=== PATIENT | female | born 1975 | race Caucasian/White ===

== ENCOUNTER 2020-05-07 09:35 | Outpatient (CLI) | payer OTHER, SELFPAY ==
--- NOTE | ~2020-05-07 | MM_ITS ---
EXAMINATION: MM screening patti BI w dennise HISTORY: Screening mammogram TECHNIQUE: Craniocaudal and mediolateral oblique 3-D tomosynthesis images were obtained and synthetic 2-D images were generated. CAD analysis was submitted and interpreted. COMPARISON: 11/18/2014, 11/12/2014 BREAST PARENCHYMAL COMPOSITION: The breasts are heterogeneously dense, which may obscure small masses . FINDINGS: RIGHT BREAST: Focal asymmetry in the upper outer right breast persists but is decreased in prominence since the comparison examination. There is no evidence of suspicious mass, calcification, or archite ctural distortion to suggest malignancy. There has been no significant interval change. LEFT BREAST: An area of focal asymmetry is present in the posterior third of the lower breast. IMPRESSION: 1. Focal asymmetry of the lower left breast. 2. Additional mammographic views and possible breast ultrasound are recommended. BI-RADS Category 0: Incomplete: Needs additional imaging evaluation. Reviewed, dictated and finalized at location A. IMPRESSION: 1. Focal asymmetry of the lower left breast. 2. Additional mammographic views and possible breast ultrasound are recommended . BI-RADS Category 0: Incomplete: Needs additional imaging evaluation.
== END 2020-05-07 09:36 | disposition home or self-care (01) ==
PROVIDERS: PCP Family Medicine; Visit Provider Family Medicine
DX: Z12.31 Encounter for screening mammogram for malignant neoplasm of breast (principal); R92.8 Other abnormal and inconclusive findings on diagnostic imaging of breast
CPT/HCPCS: 77063; 77067

== ENCOUNTER 2020-06-02 13:20 | Outpatient (CLI) | payer OTHER, SELFPAY ==
--- NOTE | ~2020-06-02 | MMUS_ITS ---
EXAMINATION: MM diagnostic mammo unilat LT, US breast LT limited HISTORY: Focal asymmetry of the left breast on screening mammogram TECHNIQUE: Additional 3-D tomosynthesis images of the left breast were performed and synthetic 2-D im ages were generated. CAD analysis was submitted and interpreted. High resolution limited left breast ultrasound was performed. COMPARISON: 05/07/2020, 10/12/2018, 11/12/2014 FINDINGS: MAMMOGRAPHIC FINDINGS: There appears to be a subtle persistent focal asymmetry in the posterior third of the lower, slightly outer breast approximately 11 cm from the nipple. No associated architectural distortion or suspicio us calcification are identified. ULTRASOUND: There is a questionable 2 cm hyperechoic, parallel mass at the 6:00 location 6 cm from the nipple wit h no posterior features or internal vascularity. IMPRESSION: 1. Probably benign left breast mass. 2. Recommend 6 month follow-up left diagnostic mammogram and ultrasound. BI-RADS category 3, probably benign findings. Reviewed, dictated and finalized at location A. IMPRESSION: 1. Probably benign left breast mass. 2. Recommend 6 month follow-up left diagnostic mammogram and ultrasound. BI-RADS category 3, probably benign findings.
== END 2020-06-02 13:21 | disposition home or self-care (01) ==
PROVIDERS: PCP Family Medicine; Visit Provider Nurse Practitioner Family
DX: N64.89 Other specified disorders of breast (principal); R92.8 Other abnormal and inconclusive findings on diagnostic imaging of breast
CPT/HCPCS: 76642; 77065

== ENCOUNTER 2020-06-19 06:27 | Outpatient (CLI) | payer OTHER, SELFPAY ==
--- NOTE | 2020-07-21 19:41 | WPDHOMESLEEP ---
Sleep Study - Home Unattended Date of Study: 06/29/20 Ordering Provider: Issac Jo MD Interpreting Physician: Jazmin Daigle MD Home Sleep Study Type: Apnea Link Air Height: 1.65 m Weight: 90.718 kg Body Mass Index: 33.3 Neck Circumference (inches): 14 [place]: 5 Reason for Sleep Study daytime fogginess, non restorative sleep Sleep History Trang Velazco is a 45-year-old female who frequently snores, and occasionally it is loud enough that others complain about it. She does not awaken at night with heartburn, belching or coughing nor does she awaken from sleep feeling short of breath. She occasionally has trouble sleeping with a cold. She does not wake up gasping for breath at night, sweating excessively at night, does not notice her heart pounding or beating irregularly at night and does not fall asleep during the day. She does not fall asleep involuntarily or while driving. She does not have loss of muscle tone was strong emotion. She rarely has daytime difficulties due to excessive sleepiness. She does not feel paralyzed on waking or falling asleep. She occasionally has vivid dreamlike scenes upon awakening or falling asleep. She has never a freight to go to sleep and does not have nightmares. She occasionally remembers her dreams. She frequently has racing thoughts. She feels sad, depressed, and anxious, at times. She constantly has muscular tension. She never notices parts of her body jerking. She occasionally kicks at night. Her arms keep her awake at night. She does not have leg pain at night. She occasionally has morning jaw pain. She rarely clenches her teeth at night. She constantly is bothered by pain during the day, rarely is awakened by pain at night. She constantly wakes up feeling stiff in the morning with sore achy muscles and pain in the neck and spine. She has fatigue, concentration difficulties, has bowel disturbances and headaches. Normal bedtime is 12 midnight falling asleep within 10 minutes, typically waking 2 times at night. While she is awake she goes to the bathroom and gets a drink of water. These awakenings last only 5 minutes. She wakes in the morning between 7 and 8:00 a.m.. She estimates 6 hours of sleep at night. She had bladder surgery recently. She really does not have much of a social life. She works 6 days a week from 11:30 a.m. to 8:00 p.m. during the week; on weekends Monday and Monday from 8 am to 4 pm. She is a dispatcher. Habits: Former smoker with 2 pack year history total; caffeine - 6-8 glasses of diet Pepsi or tea daily, no alcohol, PMFSH Past Medical History Medical History Anxiety disorder, unspecified Apnea Cystocele Elevated fasting lipid profile Fibrocystic breast Surgical History Surgical History Hx of breast augmentation Hx of hysterectomy Family History Family History Grandparent Diabetes mellitus Hypertension Mother Diabetes mellitus Family history of migraine headaches Sibling Family history of headache disorder Other Cancer of esophagus Family history of mental disorder Social History Social History Smoking packs per day: 0.5 Smoking cigarettes per day: 10.0 Years smoked: 4 Smoking pack-years: 2.00 Smoking status: Former smoker Smoking end date: 02/04/15 Alcohol intake: never Substance use: never Living arrangements: alone Additional living arrangements comments: LIVES IN ANOTHER STATE, COMING HOME TO CARE FOR HER AFTER Spiritual care concerns: No Medications Home Medications Medication Instructions Recorded Confirmed Type Aleksandr Supplement 2 tab-cap PO HS 06/19/20 06/29/20 History Zyrtec 10 mg PO DAILY 06/19/20 06/29/20 History acetaminophen 1,000 mg PO Q6H PRN 06/19/20
[2020-07-21 21:44] VITALS: BMI 33.3
== END 2020-06-19 06:28 | disposition home or self-care (01) ==
LOC: ANHCSM 06:27
PROVIDERS: PCP Family Medicine; Visit Provider Family Medicine
DX: G47.00 Insomnia, unspecified (principal); G47.33 Obstructive sleep apnea (adult) (pediatric)
CPT/HCPCS: 95806

== ENCOUNTER 2020-06-19 08:59 | Outpatient (CLI) | payer OTHER, SELFPAY ==
[2020-06-19 09:45] LABS: Basophils Percent Auto 0.4 % (0.2-1.2); Eosinophils Absolute Auto 0.2 K/mm3 (0-0.3); Eosinophils Percent Auto 2.1 % (0-4.4); Hematocrit 38.5 % (37.0-47.0); Hemoglobin 13.2 g/dL (12.0-15.0); Immature Granulocyte Absolute 0.03 K/mm3 (0.00-0.031); Immature Granulocyte Percent A 0.4 % (0-0.5); Lymphocytes Absolute Auto 2.38 K/mm3 (0.9-3.2); Lymphocytes Percent Auto 31.2 % (18.3-44.2); Mean Corpuscular HGB Conc 34.3 g/dl (32-36); Mean Corpuscular Hemoglobin 32.4 pg (26-34); Mean Corpuscular Volume 94.4 fl (80-100); Mean Platelet Volume 8.8 fl (7.4-10.4); Monocytes Absolute Auto 0.6 K/mm3 (0.1-0.6); Monocytes Percent Auto 7.3 % (2.6-8.5); Neutrophils Absolute Auto 4.5 K/mm3 (1.3-6.7); Neutrophils Percent Auto 58.6 % (45.5-73.1); Platelet Count Result 248 k/mm3 (150-375); Red Blood Count 4.08 M/mm3 (4.2-5.4); Red Cell Distribution Width 11.9 % (11.5-14.5); White Blood Count 7.6 K/mm3 (4.5-10.0)
[2020-06-19 10:01] LABS: Alanine Aminotransferase 26 U/L (4-35); Albumin Level 4.2 g/dL (3.5-5.1); Alkaline Phosphatase 60 U/L (38-126); Anion Gap 7 mmol/L (8-16); Aspartate Amino Transferase 27 U/L (14-36); Bilirubin,Total 0.2 mg/dL (0.2-1.3); Blood Urea Nitrogen 10 mg/dL (7-17); Calcium 9.7 mg/dL (8.4-10.2); Carbon Dioxide 25 mmol/L (22-30); Chloride 105 mmol/L (98-107); Cholesterol 228 mg/dL (0-200); Estimated Glomerular Filt Rate > 60; Glucose 96 mg/dL (65-105); HDL Direct 63 mg/dL; Potassium 3.9 mmol/L (3.4-5.0); Sodium 137 mmol/L (137-145); Triglycerides 86 mg/dL (<150)
[2020-06-19 10:12] LABS: LDL Cholesterol Direct 148 mg/dL
[2020-06-19 10:28] LABS: Thyroid Stimulating Hormone 0.785 uIU/mL (0.465-4.680)
[2020-06-19 10:44] LABS: Vitamin D 25 Hydroxy 25.9 ng/mL
== END 2020-06-19 09:00 | disposition home or self-care (01) ==
PROVIDERS: PCP Family Medicine; Visit Provider Family Medicine
DX: E78.5 Hyperlipidemia, unspecified (principal); F41.1 Generalized anxiety disorder; E55.9 Vitamin D deficiency, unspecified
CPT/HCPCS: 36415; 80053; 80061; 82306; 84443; 85025

== ENCOUNTER 2020-06-19 09:45 | Outpatient (CLI) | payer OTHER, SELFPAY ==
--- NOTE | 2020-06-19 10:44 | ECG_ITS ---
Measurements Intervals [place] Rate: 74 P: 47 NH: 152 QRS: 22 QRSD: 89 T: 35 QT: 373 QTc: 416 Interpretive Statements SINUS RHYTHM DELAYED PRECORDIAL R/S TRANSITION BASELINE ARTIFACT- II, III, AVL, AVF BORDERLINE ECG Electronically Signed On 06-19-2020 11:29:33 RAT POISONER by Bryce Reynolds D.O.
[2020-06-19 11:40] LABS: INR 0.9; Prothrombin Time 12.9 Seconds (11.1-14.7)
[2020-06-19 11:41] LABS: Partial Thromboplastin Time 27.7 SECONDS (22.3-36.8)
== END 2020-06-19 09:46 | disposition home or self-care (01) ==
LOC: ANHSURGERY 09:47
PROVIDERS: PCP Family Medicine; Visit Provider Urology
DX: N81.9 Female genital prolapse, unspecified (principal); E78.5 Hyperlipidemia, unspecified; Z01.818 Encounter for other preprocedural examination; R94.31 Abnormal electrocardiogram [ECG] [EKG]
CPT/HCPCS: 36415; 85610; 85730; 86850; 86900; 86901; 87086; 87088; 93005

== ENCOUNTER 2020-06-26 00:18 | Outpatient (CLI) | payer OTHER, SELFPAY ==
[2020-06-26 19:25] LABS: SARS-CoV-2 RNA PCR Negative
== END 2020-06-26 00:19 | disposition home or self-care (01) ==
LOC: ANHCOVIDDT 00:18
PROVIDERS: PCP Family Medicine; Visit Provider Urology
DX: Z01.818 Encounter for other preprocedural examination (principal); Z20.828 Contact with and (suspected) exposure to other viral communicable diseases
CPT/HCPCS: 87635; C9803; U0003

== ENCOUNTER 2020-06-29 00:44 | Day surgery (SDC) | payer OTHER, SELFPAY ==
[2020-06-19 10:02] VITALS: BMI 34.7
[2020-06-19 10:03] VITALS: BP 129/80; PULSE 72; RESP 16; TEMP 36.8; O2SAT 98
--- NOTE | 2020-06-27 08:19 | PM.IMHP ---
H&P: HPI History of Present Illness Date/Time: 06/27/20 08:19 Chief complaint: Vaginal Vault Prolapse Narrative: Trang Velazco is a 45 year old female with POP Review of Systems Review of Systems: All systems reviewed & are unremarkable except as noted in HPI and below PMFSH Past Medical History Medical History (Updated 06/27/20 @ 08:21 by Juan A Rudolph MD) Anxiety disorder, unspecified Apnea Cystocele Elevated fasting lipid profile Fibrocystic breast Surgical History Surgical History (Updated 05/14/20 @ 09:22 by Latrice Franco) Hx of breast augmentation Hx of hysterectomy Family History Family History (System 05/14/20 @ 09:22 by Latrice Franco) Grandparent Diabetes mellitus Hypertension Mother Diabetes mellitus Family history of migraine headaches Sibling Family history of headache disorder Other Cancer of esophagus Family history of mental disorder Social History Social History (System 05/14/20 @ 09:22 by Latrice Franco) Smoking packs per day: 0.5 Smoking cigarettes per day: 10.0 Years smoked: 4 Smoking pack-years: 2.00 Smoking status: Former smoker Smoking end date: 02/04/15 Alcohol intake: never Substance use: never Additional living arrangements comments: LIVES IN ANOTHER STATE, COMING HOME TO CARE FOR HER AFTER Spiritual care concerns: No Meds Home Medications and Allergies Home Medications Medication Instructions Recorded Confirmed Type Aleksandr Supplement 2 tab-cap PO HS 06/19/20 06/19/20 History acetaminophen 1,000 mg PO Q6H PRN 06/19/20 06/19/20 History cetirizine [Zyrtec] 10 mg PO DAILY 06/19/20 06/19/20 History fluticasone propionate [Flonase] 1 spray INTRANASAL DAILY PRN 06/19/20 06/19/20 History Allergies Allergy/AdvReac Type Severity Reaction Status Date / Time adhesive tape Allergy Redness of Verified 06/19/20 09:55 Skin Exam Const: General: cooperative and healthy appearing HENMT: Head: normal to inspection Resp: Effort & Inspection: normal respiratory effort and able to speak in complete sentences GI: Inspection: normal to inspection : Bimanual Exam- Adnexa, other: vaginal apex descent Skin: General skin exam: normal color Neuro: General: oriented to person Assessment and Plan Assessment and plan (1) Prolapse of vaginal vault after hysterectomy: Code(s): N99.3 - Prolapse of vaginal vault after hysterectomy Status: Acute Assessment and Plan: Robotic Sacral Colpopexy (2) KANDY (stress urinary incontinence, female): Code(s): N39.3 - Stress incontinence (female) (male) Status: Acute Assessment and Plan: urethral sling
[2020-06-29] VITALS (15 sets, daily range): BP systolic 105–155; BP diastolic 48–88; PULSE 68–93; RESP 10–18; TEMP 35.7–36.8; O2SAT 96–100
--- NOTE | 2020-06-29 07:19 | WPDHPUPDATE1 ---
History and Physical Update Update Date/Time: 06/29/20 07:19 History and Physical has been reviewed, including an updated exam of the patient. There are NO changes in the patient's condition. Risks, benefits, and alternatives have been discussed and questions answered. Patient agrees to proceed with procedure.
[2020-06-29] MEDS: LACTATED RINGERS 1,000 ML 30 ML IV CONT ×2 (12:35→16:39)
--- NOTE | 2020-06-29 12:53 | WPDANESEPPF ---
Anes - Initial Pre Proc Eval Procedure: Operation Date: 06/29/20 14:00 Proposed Procedures p Robotic Sacrocolpopexy, Possible Urethral Sling - Juan A Rudolph MD Date/Time: 06/29/20 12:53 Surgeon: Juan A Rudolph MD Pre Op Diagnosis: Vaginal Vault Prolapse Patient Data Age: 45 Gender: F Height: 5 ft 5.5 in Weight: 95.9 kg Last Vital Signs Temp 96.3 F L 06/29/20 12:08 Pulse 85 06/29/20 12:08 Resp 18 06/29/20 12:08 BP 120/75 06/29/20 12:08 Pulse Ox 100 06/29/20 12:08 Allergies Allergy/AdvReac Type Severity Reaction Status Date / Time adhesive tape Allergy Redness of Verified 06/29/20 12:15 Skin Home Medications Medication Instructions Recorded Confirmed Type Aleksandr Supplement 2 tab-cap PO HS 06/19/20 06/29/20 History acetaminophen 1,000 mg PO Q6H PRN 06/19/20 06/29/20 History cetirizine [Zyrtec] 10 mg PO DAILY 06/19/20 06/29/20 History fluticasone propionate [Flonase] 1 spray INTRANASAL DAILY PRN 06/19/20 06/29/20 History Patient hx anesthesia problems: none Family hx anesthesia problems: none PMFSH Past Medical History Medical History (Updated 06/27/20 @ 08:21 by Juan A Rudolph MD) Anxiety disorder, unspecified Apnea Cystocele Elevated fasting lipid profile Fibrocystic breast Surgical History Surgical History (Updated 05/14/20 @ 09:22 by Latrice Franco) Hx of breast augmentation Hx of hysterectomy Family History Family History (System 05/14/20 @ 09:22 by Latrice Franco) Grandparent Diabetes mellitus Hypertension Mother Diabetes mellitus Family history of migraine headaches Sibling Family history of headache disorder Other Cancer of esophagus Family history of mental disorder Social History Social History (System 05/14/20 @ 09:22 by Latrice Franco) Smoking packs per day: 0.5 Smoking cigarettes per day: 10.0 Years smoked: 4 Smoking pack-years: 2.00 Smoking status: Former smoker Smoking end date: 02/04/15 Alcohol intake: never Substance use: never Living arrangements: alone Additional living arrangements comments: LIVES IN ANOTHER STATE, COMING HOME TO CARE FOR HER AFTER Spiritual care concerns: No Anes - Eval Final PreProcedure Day of Procedure 06/29/20 12:53 Patient weight: overweight Heart: regular rate and rhythm Lungs: clear to auscultation Airway: Mallampati scale class II Neurological: alert and oriented Last oral intake: >/= 8 hours ASA classification: II Emergent: no Anesthetic plan: proceed Anesthesia type and monitoring: general ETT and standard monitoring Informed Consent: The patient's anesthetic plan and its attendant risks and benefits were discussed with the patient/family/POA. Questions were solicited and answers provided to the satisfaction of the patient/family/POA.
[2020-06-29] MEDS: ceFAZolin 2 GM/D5W 50 ML 2 GM/50 ML BAG IVPB (13:56)
--- NOTE | 2020-06-29 16:29 | PM.PROC ---
Procedure Note - Detailed Date of procedure: 06/29/20 Pre-op diagnosis: Vaginal Vault Prolapse Post hysterectomy vaginal vault prolapse Stress urinary incontinence Post-op diagnosis: same Procedure performed: Robotic assisted laparoscopic sacral colpopexy Lynn urethral sling Description of procedure: She understands the risks of bleeding, infection, recurrence of prolapse, diskitis, postoperative voiding dysfunction including incontinence and retention, dyspareunia, persistent or recurrent stress incontinence, vaginal mesh extrusion, urinary tract mesh erosion, bowel injury or obstruction, damage to surrounding organs, medical related complications. Agrees to proceed She was correctly identified and informed consent was obtained. She is brought to the operating room. She was given general anesthesia. She was placed in the low lithotomy position. All pressure points were padded. She was given appropriate perioperative antibiotics. A time-out was performed. I anesthetized the skin 3 fingerbreadths cephalad to the umbilicus. I incised the skin. I located the fascia. I entered the fascia sharply. I placed Vicryl sutures for later fascial closure. I placed a midline trocar. Under direct vision 2 additional trocars were placed in the right and left upper quadrant. She was placed in steep Trendelenburg. The robot was docked. I then sat at the console. With the Sizer in the vagina I created a plane on the anterior and posterior vaginal wall. I took great care not to injure the vagina bladder or rectum. I introduced the mesh into the abdomen. I sewed the anterior leaflet of mesh on the anterior vaginal wall and posterior leaflet of mesh on the posterior vaginal wall with several sutures with 2 Goritex taking great care not to go through and through. I then reflected the colon laterally. I opened up the peritoneum over the sacral promontory. I carried this incision into the cul-de-sac. I located the ureter and kept lateral. I freed up the edges of the peritoneum. I located the anterior longitudinal ligament of the sacrum. I then tensioned my mesh appropriately. I did a vaginal exam to ensure prolapse reduction without undue tension. I then sewed the proximal leaflet of mesh onto the ligament with 3 sutures of 2 0 [place]-Davy. I used a 2 0 Monocryl to completely and meticulously retroperitonealized all mesh. I allowed the colon to go back into its normal anatomic location no sign of any impingement or stricturing. The abdomen was exited. Fascial sutures were closed. Skin was closed. Glue was applied. She was repositioned and prepped for urethral sling. I marked out the thigh incisions. I anesthetized the skin and made those incisions. I anesthetized the anterior vaginal wall over the mid urethra. I made a 1 cm incision. I dissected out laterally taking great care not to injure the urethra or the vaginal wall. I passed the helical trocars. First on the left and then on the right. This was done from the thigh incision towards the vaginal incision. The sling was connected to the trocars and brought out through the thigh incision. I tensioned the sling appropriately. I cut and removed the plastic sheaths. I then closed the incision with 2 0 Vicryl. Cystoscopy showed no surgical artifact in the bladder. No surgical artifact in the urethra. Ureteral orifices were seen to excrete clear yellow urine. The Willis catheter was replaced. She was awakened and transferred to the PACU in stable condition. Implants: Y mesh Anesthesia: GETA Surgeon: Juan A Rudolph MD Drains: Yes (Willis catheter) Packing: No Pathology: none sent Complications: No immediate complications Condition: stable Disposition: PACU
[2020-06-29] MEDS: fentaNYL CITRATE INJ (*CRX) 100 MCG/2 ML VIAL 25 MCG IV PUSH ×8 (16:48→17:16)
--- NOTE | 2020-06-29 17:40 | PC.NURSE ---
This patient, Trang Velazco, was received from PACU on 06/29/20 at 1740. Patient/family oriented to unit policies and routines
[2020-06-29] MEDS: KCL 20 MEQ/D5/0.45% SOD CHL 1,000 ML 100 ML IV CONT (17:50)
[2020-06-29] MEDS: KETOROLAC 30 MG/ML VIAL (*BKC) IV PUSH (17:50)
[2020-06-29] MEDS: MORPHINE SULFATE (*CRX) 2 MG/ML INJ IV PUSH ×2 (18:50→21:14)
[2020-06-29] MEDS: HYDROcodone/acetaminophen (*CRX) 5-325 MG TABLET 1 TAB PO (22:31)
[2020-06-30] VITALS: BP 116/71; PULSE 82; RESP 16; TEMP 36.7; O2SAT 98
[2020-06-30] MEDS: MORPHINE SULFATE (*CRX) 2 MG/ML INJ IV PUSH (01:01)
[2020-06-30] MEDS: KETOROLAC 30 MG/ML VIAL (*BKC) IV PUSH (02:20)
[2020-06-30] MEDS: HYDROcodone/acetaminophen (*CRX) 5-325 MG TABLET 1 TAB PO ×3 (02:54→11:38)
[2020-06-30 04:00] VITALS: BP 117/64; PULSE 71; RESP 16; TEMP 36.8; O2SAT 100
[2020-06-30] MEDS: DOCUSATE SODIUM 100 MG CAPSULE PO (06:33)
[2020-06-30] MEDS: ENOXAPARIN 30 MG/0.3 ML SYRINGE SUB-Q (06:34)
[2020-06-30] MEDS: LORATADINE 10 MG TABLET PO (06:34)
--- NOTE | 2020-06-30 08:41 | WPDUROPN2 ---
Progress Note: A&P Assessment and Plan (1) KANDY (stress urinary incontinence, female): Code(s): N39.3 - Stress incontinence (female) (male) Status: Acute (2) Prolapse of vaginal vault after hysterectomy: Code(s): N99.3 - Prolapse of vaginal vault after hysterectomy Status: Acute Assessment and Plan: Patient's PVR is <200cc. She is doing very well post operatively, tolerating diet and is ok to go home after antibiotic dose. Subjective Subjective Date/Time Seen: 06/30/20 08:41 POD #1 Robotic assisted laparoscopic sacral colpopexy, Mid urethral sling Review of Systems Cardiovascular: Cardiovascular: Reports no additional cardiovascular complaints Respiratory: Respiratory: Reports no additional respiratory complaints Gastrointestinal: Gastrointestinal: Reports abdominal pain (at incision sites only), Denies nausea and Denies vomiting Genitourinary: Genitourinary: Denies hematuria, Denies dysuria, Denies pelvic pain and Denies flank pain Exam Resp: Effort & Inspection: normal respiratory effort Cardio: Rate: regular rate GI: Inspection: incision (all are well approximated no drainage or edema) Extrem: General: no edema Objective Data Vital Signs Vital Signs: Vital Signs - 24 hr 06/29/20 12:08 06/29/20 16:39 06/29/20 16:45 Temperature 96.3 F L 97 F L Pulse Rate 85 89 84 Respiratory Rate 18 12 12 Blood Pressure 120/75 109/70 105/79 Pulse Oximetry 100 100 100 06/29/20 17:00 06/29/20 17:15 06/29/20 17:25 Temperature Pulse Rate 68 78 84 Respiratory Rate 10 L 13 13 Blood Pressure 123/48 L 125/60 138/76 Pulse Oximetry 98 96 98 06/29/20 17:40 06/29/20 17:45 06/29/20 18:00 Temperature 98.2 F Pulse Rate 80 83 71 Respiratory Rate 16 18 18 Blood Pressure 143/79 H 155/75 H 126/81 Pulse Oximetry 99 100 100 06/29/20 18:15 06/29/20 18:30 06/29/20 19:00 Temperature Pulse Rate 69 74 72 Respiratory Rate Blood Pressure 138/88 127/81 133/77 Pulse Oximetry 100 100 100 06/29/20 19:30 06/29/20 20:00 06/29/20 21:00 Temperature 97.6 F Pulse Rate 70 73 93 Respiratory Rate 16 Blood Pressure 131/77 117/62 126/72 Pulse Oximetry 100 100 100 06/30/20 00:00 06/30/20 04:00 Temperature 98.0 F 98.3 F Pulse Rate 82 71 Respiratory Rate 16 16 Blood Pressure 116/71 117/64 Pulse Oximetry 98 100 Intake/Output Intake/Output: Intake & Output 06/27/20 06/28/20 06/29/20 06/30/20 23:59 23:59 23:59 23:59 Intake Total 750 4280 Output Total 5550 Balance 750 -1270 Meds/Results Medications: Active Medications Generic Name Dose Route Start Last Admin Trade Name Freq PRN Reason Stop Dose Admin Acetaminophen 650 mg 06/29/20 17:27 Acetaminophen 325 Mg Tablet PO Q4H PRN Mild Pain (1-3) or Fever Hydrocodone Bitart/Acetaminophen 1 tab 06/29/20 17:27 06/30/20 06:34 Hydrocodone/Acetaminophen (*Crx) 5-325 Mg Tablet PO 1 tab Q4H PRN Administration Pain Rated 4-5 Cephalexin HCl 500 mg 06/30/20 17:00 Cephalexin 500 Mg Capsule PO QID GUMARO Diphenhydramine HCl 25 mg 06/29/20 17:27 Diphenhydramine Hcl Inj 50 Mg/Ml Vial IV PUSH Q6H PRN Itching Docusate Sodium 100 mg 06/30/20 09:00 06/30/20 06:33 Docusate Sodium 100 Mg Capsule PO 100 mg DAILY GUMARO Administration Enoxaparin Sodium 30 mg 06/30/20 09:00 06/30/20 06:34 Enoxaparin 30 Mg/0.3 Ml Syringe SUB-Q 30 mg DAILY GUMARO Administration Cefazolin Sodium 1 gm in 50 mls @ 100 mls/hr 06/29/20 17:27 06/30/20 05:36 Ancef 1 Gm/D5w 50 Ml Pm IVPB 06/30/20 09:56 100 mls/hr Q8H GUMARO Administration Ketorolac Tromethamine 30 mg 06/29/20 17:27 06/30/20 02:20 Ketorolac 30 Mg/Ml Vial (*Bkc) IV PUSH 06/30/20 17:28 30 mg Q8H PRN Administration Pain Rated 5 or Less Loratadine 10 mg 06/30/20 09:00 06/30/20 06:34 Loratadine 10 Mg Tablet PO 10 mg DAILY GUMARO Administration Morphine Sulfate 2 mg 06/29/20 17:27
[2020-06-30 08:45] VITALS: BP 114/68; PULSE 88; RESP 18; TEMP 37.3; O2SAT 97
--- NOTE | 2020-06-30 11:05 | WPDANESPN ---
Anes - Prog Note Post-Op Date/Time: 06/30/20 11:05 Cardiovascular status: normal Respiratory status: normal Airway patency: baseline Mental status: baseline Post-Op hydration status: normal Vital Signs: Last Vital Signs Temp 37.3 C 06/30/20 08:45 Pulse 88 06/30/20 08:45 Resp 18 06/30/20 08:45 BP 114/68 06/30/20 08:45 Pulse Ox 97 06/30/20 08:45 Pain Score (VAS): 2 I/O: Intake & Output 06/29/20 06/30/20 06/30/20 23:59 07:59 15:59 Intake Total 700 4280 Output Total 5550 700 Balance 700 -1270 -700 Post-procedural complaints: none Patient Feedback: Patient satisfied with anesthetic care.
[2020-06-30 11:30] VITALS: BP 123/62; PULSE 72; RESP 18; TEMP 37.1; O2SAT 97
== END 2020-06-30 13:52 | disposition home or self-care (01) ==
LOC: ANHSURGERY 13:40 → ANHOB2 17:33
PROVIDERS: PCP Family Medicine; Visit Provider Urology
PROC: (CPT 57425; principal; 2020-06-29 14:00)
DX: N99.3 Prolapse of vaginal vault after hysterectomy (principal); N39.3 Stress incontinence (female) (male); Z87.891 Personal history of nicotine dependence
CPT/HCPCS: 57425; S2900; 99199; A9270; C1771; C1781; J0690; J1100; J1650; J1885; J2250; J2270; J2405; J2704; J2710; J3010; J3480; J7030; J7120

== ENCOUNTER 2021-07-21 09:05 | Outpatient (CLI) | payer OTHER, SELFPAY ==
--- NOTE | ~2021-07-21 | XR_ITS ---
EXAMINATION: XR foot RT 2V EXAM DATE: 07/21/2021 09:59 INDICATION: M79.673 - Pain in unspecified foot, right 1st MTP joint. No known recent injury. TECHNIQUE: Frontal and lateral projections of the right foot standing. There is no prior study for comparison. FINDINGS: There is severe loss of the right 1st metatarsophalangeal joint space, moderate amount of bony productive change. Could be primary but posttraumatic etiology not excludable given paucity of a rthritis at other joints. There are no acute right foot fractures or dislocations identified. There is no subcutaneous gas. The soft tissue is unremarkable. There are no radiopaque foreign bodies. 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 Reviewed, dictated and finalized at location B. [employer] MOLDING MACHINE OPERATOR
[2021-07-21 09:56] LABS: Hematocrit 40.1 % (37.0-47.0); Hemoglobin 13.9 g/dL (12.0-15.0); Mean Corpuscular HGB Conc 34.7 g/dl (32-36); Mean Corpuscular Hemoglobin 31.7 pg (26-34); Mean Corpuscular Volume 91.6 fl (80-100); Mean Platelet Volume 9.1 fl (7.4-10.4); Platelet Count Result 289 k/mm3 (150-375); Red Blood Count 4.38 M/mm3 (4.2-5.4); White Blood Count 8.5 K/mm3 (4.5-10.0)
[2021-07-21 10:02] LABS: Anion Gap 12 mmol/L (8-16); Blood Urea Nitrogen 8 mg/dL (7-17); Calcium 10.5 mg/dL (8.4-10.2); Carbon Dioxide 24 mmol/L (22-30); Chloride 105 mmol/L (98-107); Cholesterol 214 mg/dL (0-200); Estimated Glomerular Filt Rate > 60; Glucose 106 mg/dL (65-110); HDL Direct 62 mg/dL; Potassium 4.1 mmol/L (3.4-5.0); Sodium 141 mmol/L (137-145); Triglycerides 67 mg/dL (<150)
[2021-07-21 10:12] LABS: LDL Cholesterol Direct 122 mg/dL
[2021-07-21 11:00] LABS: Vitamin D 25 Hydroxy 35.7 ng/mL
[2021-07-26 07:35] LABS: FSH 97.7 mIU/mL (***)
[2021-07-29 19:11] LABS: Estrogen 115.1 pg/mL
== END 2021-07-21 09:06 | disposition home or self-care (01) ==
PROVIDERS: PCP Family Medicine; Visit Provider Family Medicine
DX: M19.071 Primary osteoarthritis, right ankle and foot (principal); N95.1 Menopausal and female climacteric states; R79.89 Other specified abnormal findings of blood chemistry; E55.9 Vitamin D deficiency, unspecified; F41.1 Generalized anxiety disorder; E78.5 Hyperlipidemia, unspecified; Z13.220 Encounter for screening for lipoid disorders
CPT/HCPCS: 36415; 73620; 80048; 80061; 82306; 82672; 83001; 85027

== ENCOUNTER → 2021-08-28 00:09 | Outpatient (CLI) | payer OTHER, SELFPAY ==
[2021-08-28 20:22] LABS: SARS-CoV-2 RNA PCR Positive
== END ==
PROVIDERS: PCP Family Medicine; Visit Provider Obstetrics & Gynecology
DX: U07.1 COVID-19 (principal)
CPT/HCPCS: C9803; U0003; U0005

== ENCOUNTER 2021-09-08 01:54 | Day surgery (SDC) | payer OTHER, SELFPAY ==
--- NOTE | 2021-08-30 08:28 | SUR.PREOP ---
Addendum entered by Bella Schaeffer RN 09/02/21 11:28: PT INSTRUCTED TO ARRIVE AT 1030 ON 09/08/21 FOR SURGERY AT 1230. Original Note: Report to the Outpatient Waiting Room, entrance under the green pavilion located off [facility], at time 1000 on date 09/01/21. OR Time: 1200. - You and your visitor will be asked a series of questions to screen for COVID 19 for your protection. - A mask is required within the hospital. - Only one visitor is allowed at this time. Patient visitors will be guided where to wait when not with patient. Preoperative COVID Testing Requirements: No COVID Test needed if: (proof is required; if not received patient will have Rapid Test prior to entry) - Patient has received COVID Vaccine at least 14 days prior to procedure date or - Patient has positive COVID test result within last 90 days of surgery date. COVID Test needed if above criteria is not met If not COVID vaccinated a COVID test must be conducted within 72 hours of surgery and patient is asked to isolate self from time of testing until procedure. You will go to the [employer] [facility] for your COVID testing. The [employer] [facility] site is located at the corner of [address] [facility]. You will only be called if COVID results are positive and your surgeon may reschedule your elective surgery date. Patients may have clear liquids (water, carbonated beverages, clear teas, apple juice) until 3 hours prior to surgery with a maximum of 20 ounces. NOTHING AFTER 9AM - No food from midnight until time of surgery - Infants may have breast milk until 4 hours before surgery, formula 6 hours prior to surgery. - Children will be allowed to drink immediately following surgery. If applicable, please bring a bottle or sippy cup to assist with drinking. Juice, water, soda, and popsicles are readily available. For infants on formula, please bring formula the day of surgery. Pacifiers are allowed. Take the following medications with a SIP of water the morning of surgery: VENLAFAXINE, BUSPIRONE, ACETAMINOPHEN Please no make-up, nail martiniquais, hairspray, perfume, deodorant, or body powder the day of surgery. No jewelry (including any body piercings) or valuables the day of surgery, leave them at home. Please take a shower or bath the night before, or the morning of, surgery with an antibacterial soap. Wear comfortable, loose fitting clothing. Children are encouraged to wear pajamas. - Jewelry must be removed prior to entering the operating room. Rings and piercings that are not removed may be cut off. - The hospital will not accept responsibility for valuables. - Please leave all valuables, including medications, at home the day of surgery. If you are going home after surgery, a licensed stake driver must drive you home. - NO public transportation without another adult. - We recommend that an adult stay with you for 24 hours following discharge. - We also recommend that you do not drive, make important decision, drink alcoholic beverages, or take any drugs that were not prescribed by your health care provider for at least 24 hours after your discharge time. For Pediatric surgeries, we recommend two adults accompany the child home (only one inside the building at this time). Follow any additional instructions given to you from your surgeon. Telephone instructions given to PATIENT/DEB (YANI VINES) and asked if any additional questions and then verbalized understanding. Patient advised to call surgeon office or pre surgery nurse liaison [phone] if any additional questions.
[2021-08-30 08:50] VITALS: BMI 33.0
--- NOTE | 2021-09-02 11:26 | PC.NURSE ---
Pt states no changes in medications since initial interview. Covid + updated in health history. Pt states she had no symptoms when she tested positive and has not had any in the past week. New instructions reviewed with pt. Pt denies further questions at this time.
[2021-09-08] MEDS: LACTATED RINGERS 1,000 ML 30 ML IV CONT ×2 (10:45→12:55)
[2021-09-08] MEDS: ACETAMINOPHEN 500 MG TABLET 1000 MG PO (10:45)
[2021-09-08] MEDS: KETOROLAC 15 MG/ML VIAL (*BKC) IV PUSH (10:45)
--- NOTE | 2021-09-08 11:01 | WPDANESEPPF ---
Anes - Initial Pre Proc Eval Procedure: Operation Date: 09/08/21 12:00 Proposed Procedures p Posterior Repair Colpoperineorrhaphy - Pascual Schuster MD Date/Time: 09/08/21 11:01 Surgeon: Pascual Schuster MD Pre Op Diagnosis: rectocele Patient Data Age: 46 Gender: F Height: 1.65 m Weight: 90 kg Allergies Allergy/AdvReac Type Severity Reaction Status Date / Time adhesive tape Allergy Redness of Verified 09/08/21 11:02 Skin Home Medications Medication Instructions Recorded Confirmed Type acetaminophen 1,000 mg PO Q6H PRN 06/19/20 09/02/21 History melatonin 5 mg capsule 10 mg PO .QHS cap 09/07/20 09/02/21 History buspirone 10 mg tablet 10 mg PO BID #60 tablet 07/22/21 09/02/21 Rx venlafaxine 75 mg capsule,extended 75 mg PO DAILY #30 cap 07/22/21 09/02/21 Rx release 24 hr alprazolam 0.5 mg tablet 0.5 mg PO BID PRN #30 tablet 09/02/21 Rx Patient hx anesthesia problems: none Family hx anesthesia problems: none Results Review: All pre-operative results and documents have been reviewed as part of the pre-operative evaluation. [facility]LY [facility] Past Medical History Medical History (Updated 09/08/21 @ 11:02 by Brennon Espinoza MD) Acute cystitis Anxiety disorder, unspecified Apnea BMI 33.0-33.9,adult BMI 34.0-34.9,adult BMI over 35 Cystocele Elevated fasting lipid profile Fibrocystic breast Hot flash, menopausal Hyperlipidemia Low vitamin D level Obstructive sleep apnea (~06/2020) Osteoarthritis of toe Rectocele Screening mammogram for high-risk patient Surgical History Surgical History Hx of breast augmentation Hx of hysterectomy Family History Family History Grandparent Diabetes mellitus Hypertension Mother Diabetes mellitus Family history of migraine headaches Sibling Family history of headache disorder Other Cancer of esophagus Family history of mental disorder Social History Social History Smoking packs per day: 0.5 Smoking cigarettes per day: 10.0 Years smoked: 4 Smoking pack-years: 2.00 Smoking status: Former smoker Smoking end date: 02/04/15 Alcohol intake: never Substance use: never Spiritual care concerns: No Anes - Eval Final PreProcedure Day of Procedure 09/08/21 11:01 Patient weight: obese Heart: regular rate and rhythm Lungs: clear to auscultation Airway: Mallampati scale class II Neurological: alert and oriented Last oral intake: >/= 8 hours ASA classification: III Emergent: no Anesthetic plan: proceed Anesthesia type and monitoring: general LMA and standard monitoring Results Review: All pre-operative results and documents have been reviewed as part of the pre-operative evaluation. Informed Consent: The patient's anesthetic plan and its attendant risks and benefits were discussed with the patient/family/POA. Questions were solicited and answers provided to the satisfaction of the patient/family/POA.
[2021-09-08 11:03] VITALS: BP 134/70; PULSE 96; RESP 14; TEMP 36.5; O2SAT 98; BMI 33.7
--- NOTE | 2021-09-08 11:36 | PM.IMHP ---
H&P: HPI History of Present Illness Date/Time: 09/08/21 11:37 46 y/o with a symptomatic rectocele. Chief Complaint: Bulge Review of Systems Review of Systems: All systems reviewed & are unremarkable except as noted in HPI and below [facility] Past Medical History Medical History Acute cystitis Anxiety disorder, unspecified Apnea BMI 33.0-33.9,adult BMI 34.0-34.9,adult BMI over 35 Cystocele Elevated fasting lipid profile Fibrocystic breast Hot flash, menopausal Hyperlipidemia Low vitamin D level Obstructive sleep apnea (~06/2020) Osteoarthritis of toe Rectocele Screening mammogram for high-risk patient Surgical History Surgical History Hx of breast augmentation Hx of hysterectomy Family History Family History Grandparent Diabetes mellitus Hypertension Mother Diabetes mellitus Family history of migraine headaches Sibling Family history of headache disorder Other Cancer of esophagus Family history of mental disorder Social History Social History Smoking packs per day: 0.5 Smoking cigarettes per day: 10.0 Years smoked: 4 Smoking pack-years: 2.00 Smoking status: Former smoker Smoking end date: 02/04/15 Alcohol intake: never Substance use: never Spiritual care concerns: No Meds Home Medications and Allergies Home Medications Medication Instructions Recorded Confirmed Type acetaminophen 1,000 mg PO Q6H PRN 06/19/20 09/08/21 History melatonin 5 mg capsule 10 mg PO .QHS cap 09/07/20 09/08/21 History buspirone 10 mg tablet 10 mg PO BID #60 tablet 07/22/21 09/08/21 Rx venlafaxine 75 mg capsule,extended 75 mg PO DAILY #30 cap 07/22/21 09/08/21 Rx release 24 hr alprazolam 0.5 mg tablet 0.5 mg PO BID PRN #30 tablet 09/02/21 09/08/21 Rx Allergies Allergy/AdvReac Type Severity Reaction Status Date / Time adhesive tape Allergy Redness of Verified 09/08/21 11:02 Skin Vital Signs Vital Signs - 24 hr 09/08/21 11:03 Temperature 36.5 C Pulse Rate 96 Respiratory Rate 14 Blood Pressure 134/70 Pulse Oximetry 98 Exam Const: Orientation/consciousness: patient oriented x3 Other: Well-developed, well-nourished female in no acute distress. Neck: Thyroid: thyroid normal Lymphatic: no lymphadenopathy noted (in neck, axilla or inguinal nodes) Resp: Effort & Inspection: normal respiratory effort Auscultation: clear to auscultation bilaterally Cardio: Rate: regular rate Rhythm: regular rhythm Heart sounds: S1 normal heart sound present and S2 normal heart sound present GI: Other: ABD: Soft, nontender, nondistended. No guarding or rebound tenderness. No hepatosplenomegaly. : General: Yes no CVA tenderness Other: External genitalia: normal female hair distribution, without lesion. Urethral meatus: no lesion, non prolapsed. Bladder: no mass, nontender Vagina: well-estrogenized. The vaginal cuff is well-supported. A third degree rectocele is noted.. Cervix: absent. Uterus: absent. Adnexa: no mass or tenderness. Anus/perineum: no lesions, nontender Back/Spine/Pelvis: Back: no CVA tenderness Skin: General skin exam: normal color and no rashes or lesions noted Neuro: General: patient oriented x3 Extrem: Other: Extremities: nontender with no edema Psych: Mental Status: mental status grossly normal Affect: normal affect Assessment and Plan Assessment and plan (1) Rectocele: Code(s): N81.6 - Rectocele Status: Acute Assessment and Plan: A: Symptomatic rectocele. P: We have reviewed options including observation versus pessary versus posterior colpoperineorrhaphy. She strongly prefers that last option. She understands risks of surgery to include risks of anesthesia, risks of pain, infection, bleeding, blo
--- NOTE | 2021-09-08 11:45 | WPDHPUPDATE1 ---
History and Physical Update Update Date/Time: 09/08/21 11:45 History and Physical has been reviewed, including an updated exam of the patient. There are NO changes in the patient's condition. Risks, benefits, and alternatives have been discussed and questions answered. Patient agrees to proceed with procedure.
[2021-09-08] MEDS: ceFAZolin 2 GM/D5W 50 ML 2 GM/50 ML BAG IVPB (11:47)
--- NOTE | 2021-09-08 12:50 | W.PM.PROC2 ---
Procedure Note - Detailed Date of Procedure 09/08/21 Pre-op Diagnosis Symptomatic rectocele Post-op Diagnosis same Procedure Performed Posterior colpoperineorrhaphy Surgeon Pascual Schuster MD Anesthesia general Findings Third degree rectocele. No significant cystocele. Uterus and cervix surgically absent. Vaginal cuff well-supported. Description of Procedure The patient was taken to the operating room where she was prepared and draped in the usual sterile fashion in the dorsal lithotomy position. The bladder was drained with red rubber catheter. A Jason retractor was used anteriorly. The vaginal epithelium overlying the rectocele was elevated and infiltrated with a total of 5 mL of sterile saline. A longitudinal incision was made over the rectocele. A may-shaped excision of perineal skin was also excised. Lateral dissection undertaken. The fascia was then reapproximated using 2-0 vicryl in interrupted, figure of eight fashion. Digital rectal exam confirmed good repair of the rectocele. The perineum was bolstered with additional figure of eight sutures of the same material. Excess vaginal epithelium was sharply excised and discarded. The vaginal/perineal incision was reapproximated using 0 Vicryl in the usual running fashion. Hemostasis was excellent. Premarin cream was applied to the vaginal incision. Sponge, lap, needle and instrument counts were correct. The patient was awakened and taken to the recovery room in stable condition. I was present and scrubbed for the entire procedure. Implants None Estimated Blood Loss 20 Drains No Packing No Pathology none sent Complications None Condition stable Disposition PACU
[2021-09-08 12:51] VITALS: BP 101/55; PULSE 105; RESP 18; TEMP 36.2; O2SAT 100
[2021-09-08 13:05] VITALS: BP 98/50; PULSE 88; RESP 12; O2SAT 100
[2021-09-08] MEDS: fentaNYL CITRATE INJ (*CRX) 100 MCG/2 ML VIAL 25 MCG IV PUSH ×3 (13:05→13:24)
[2021-09-08 13:21] VITALS: BP 116/67; PULSE 76; RESP 14; O2SAT 97
[2021-09-08 13:28] VITALS: BP 115/76; PULSE 70; RESP 16
[2021-09-08] MEDS: oxyCODONE HCL (*CRX) 5 MG TAB IR PO (13:41)
[2021-09-08 13:58] VITALS: BP 116/63; PULSE 72; RESP 14
== END 2021-09-08 14:23 | disposition home or self-care (01) ==
PROVIDERS: PCP Family Medicine; Visit Provider Obstetrics & Gynecology
PROC: (CPT 57260; principal; 2021-09-08 12:00)
DX: N81.6 Rectocele (principal); G47.33 Obstructive sleep apnea (adult) (pediatric); F41.9 Anxiety disorder, unspecified; Z87.891 Personal history of nicotine dependence; E66.9 Obesity, unspecified; Z68.33 Body mass index [BMI] 33.0-33.9, adult
CPT/HCPCS: 57250; 36415; 86850; 86900; 86901; A9270; J0330; J0690; J1100; J1170; J1885; J2250; J2370; J2405; J2704; J3010; J7120

== ENCOUNTER 2025-03-11 08:02 | Outpatient (CLI) | payer OTHER, SELFPAY ==
[2025-03-11 08:50] LABS: Hematocrit 41.2 % (37.0-47.0); Hemoglobin 13.9 g/dL (12.0-15.0); Mean Corpuscular HGB Conc 33.7 g/dl (32-36); Mean Corpuscular Hemoglobin 31.7 pg (26-34); Mean Corpuscular Volume 94.1 fl (80-100); Platelet Count Result 251 k/mm3 (150-375); Red Blood Count 4.38 M/mm3 (4.2-5.4); White Blood Count 7.9 K/mm3 (4.5-10.0)
[2025-03-11 09:37] LABS: Alanine Aminotransferase 37 U/L (6-35); Albumin Level 4.6 g/dL (3.5-5.1); Alkaline Phosphatase 73 U/L (38-126); Anion Gap 10 mmol/L (4-12); Aspartate Amino Transferase 36 U/L (14-36); Bilirubin,Total 0.5 mg/dL (0.2-1.3); Blood Urea Nitrogen 6 mg/dL (7-17); CRP < 0.5 mg/dL (<1.0); Calcium 10.0 mg/dL (8.4-10.2); Carbon Dioxide 28 mmol/L (22-30); Chloride 101 mmol/L (98-107); Cholesterol 291 mg/dL (0-200); Estimated Glomerular Filt Rate > 60; Glucose 87 mg/dL (65-110); HDL Direct 87 mg/dL; Potassium 4.3 mmol/L (3.4-5.0); Sodium 139 mmol/L (137-145); Total Protein 7.9 g/dL (6.3-8.2); Triglycerides 77 mg/dL (<150)
[2025-03-11 10:09] LABS: Thyroid Stimulating Hormone 2.300 uIU/mL (0.465-4.680)
== END 2025-03-11 08:03 | disposition home or self-care (01) ==
LOC: ANHLAB 08:04
PROVIDERS: PCP Family Medicine; Visit Provider Nurse Practitioner Family
DX: E78.5 Hyperlipidemia, unspecified (principal); F41.1 Generalized anxiety disorder; E55.9 Vitamin D deficiency, unspecified; M25.50 Pain in unspecified joint
CPT/HCPCS: 36415; 80053; 80061; 82306; 84443; 85027; 85652; 86140; 86430